=== PATIENT | female | born 1965 | race Caucasian/White ===

== ENCOUNTER 2018-09-09 10:42 | Outpatient (CLI) | END 2018-09-09 10:43 | disposition home or self-care (01) | LOC: RHC-LAB 10:42 → FCC-LAB 10:43 | PROVIDERS: ATTEND Family Medicine | DX: E03.9 Hypothyroidism, unspecified (principal); E78.5 Hyperlipidemia, unspecified | CPT/HCPCS: 36415; 80053; 80061; 84443; 85025 ==

== ENCOUNTER 2018-09-23 12:29 | Outpatient (CLI) | payer BC, OTHER | END 2018-09-23 12:30 | disposition home or self-care (01) | LOC: LAB 12:29 | PROVIDERS: ATTEND Family Medicine | DX: E87.5 Hyperkalemia (principal); E83.52 Hypercalcemia | CPT/HCPCS: 36415; 80053 ==

== ENCOUNTER 2019-01-02 12:47 | Outpatient (CLI) | payer OTHER | END 2019-01-02 12:48 | disposition home or self-care (01) | LOC: RHC-LAB 12:47 → FCC-LAB 12:48 | PROVIDERS: ATTEND Nurse Practitioner Family | DX: R30.0 Dysuria (principal) | CPT/HCPCS: 81001 ==

== ENCOUNTER 2021-07-03 09:56 | Observation (INO) ==
[2021-07-03] MEDS ORDERED: NITROSTAT SL PRN (10:16)
[2021-07-03] MEDS ORDERED: ATROPINE SULFATE PFS IVP PRN (10:16)
[2021-07-03] MEDS ORDERED: TYLENOL PO PRN (10:16)
[2021-07-03] MEDS ORDERED: DECADRON IM ONE (10:19)
[2021-07-03 10:39] VITALS: BMI 28.4
[2021-07-03 10:40] LABS: BASOPHILS % (AUTO) 0.3 % (0.0-3.0); EOSINOPHILS # (AUTO) 0.1 K/ul (0.0-0.7); EOSINOPHILS % (AUTO) 0.7 % (0.0-7.0); HEMATOCRIT 42.5 % (37.0-47.0); HEMOGLOBIN 14.3 g/dl (12.0-16.0); IMMATURE GRANULOCYTE # (AUTO) 0.1 (0.0-1.0); LYMPHOCYTES # (AUTO) 2.8 K/uL (0.60-3.4); LYMPHOCYTES % (AUTO) 24.1 (10.0-50.0); MEAN CORPUSCULAR HEMOGLOBIN 31.7 pg (27.0-31.0); MEAN CORPUSCULAR HGB CONC 33.6 (31.8-35.4); MEAN CORPUSCULAR VOLUME 94.2 fl (81.0-99.0); MONOCYTES # (AUTO) 0.8 K/uL (0.4-2.0); NEUTROPHILS # (AUTO) 7.9 K/ul (2.0-6.9); NEUTROPHILS % (AUTO) 66.9 % (42.2-75.2); PLATELET COUNT 526 10^3/uL (140-440); RDW COEFFICIENT OF VARIATION 12.3 % (11.6-14.8); RED BLOOD COUNT 4.51 10^6/ul (4.20-5.40); WHITE BLOOD COUNT 11.74 K/ul (4.6-10.2)
[2021-07-03 10:51] LABS: ALANINE AMINOTRANSFERASE 53.8 U/L (0-35); ALBUMIN 4.48 g/dL (3.5-5.0); ASPARTATE AMINO TRANSFERASE 34.8 U/L (14-36); BILIRUBIN,TOTAL 0.55 mg/dL (0.2-1.3); BLOOD UREA NITROGEN 13.9 mg/dL (7-17); CALCIUM 9.51 mg/dL (8.4-10.2); CARBON DIOXIDE 26.9 mmol/L (22-30.0); CHLORIDE 106.9 mmol/L (98-107); CREATININE 0.75 mg/dL (0.60-1.30); GLUCOSE 94.4 mg/dL (74-106); POTASSIUM 4.07 mmol/L (3.5-5.1); SODIUM 141.9 mmol/L (134.5-145); TOTAL PROTEIN 7.97 g/dL (6.3-8.2)
[2021-07-03] MEDS: ZINC-220 PO SCH (11:24)
[2021-07-03] MEDS: VITAMIN D PO SCH (11:24)
--- NOTE | 2021-07-03 11:29 | DI ---
EXAM: PA and lateral views of the chest HISTORY: Shortness of breath COMPARISON: None FINDINGS: The cardiomediastinal silhouette is normal. There is no pneumothorax or pleural effusion. There is no consolidation, nodule or mass. There is minimal patchy ground-glass in the right lower lung. The osseous structures tear degenerative disease of the spine. IMPRESSION: Minimal patchy ground-glass in right lower lung may represent developing pneumonia versu s inflammatory changes
[2021-07-03] MEDS: SODIUM CHLORIDE 1,000 ML IV SCH (11:34)
[2021-07-03] MEDS: ROCEPHIN 1 GM/50 ML D5W 1 GM/50 ML BAG IV SCH (11:34)
[2021-07-03 13:13] LABS: BILIRUBIN,URINE Negative (NEGATIVE); CLARITY,URINE Clear (CLEAR); COLOR,URINE Yellow (YELLOW); GLUCOSE, URINE (UA) Negative (NEGATIVE); KETONES,URINE Negative (NEGATIVE); LEUKOCYTE ESTERASE ,URINE Trace (NEGATIVE); NITRITE,URINE Negative (NEGATIVE); PH,URINE 6.5 (5-9); PROTEIN,URINE Negative (NEGATIVE); URINE, BLOOD Negative (NEGATIVE); UROBILINOGEN,URINE 0.2 (0.2)
[2021-07-03 13:18] LABS: SQUAMOUS EPITHELIAL CELL,UR NOT PRESENT (0-5)
[2021-07-03] MEDS ORDERED: IMODIUM PO PRN (14:34)
[2021-07-03] MEDS ORDERED: IMODIUM PO ONE (14:34)
[2021-07-03] MEDS: TORADOL IVP PRN (16:38)
[2021-07-03] MEDS: PROTONIX PO SCH (16:38)
[2021-07-03 17:05] LABS: CREATINE KINASE 53.5 U/L (30-135)
[2021-07-03 17:18] LABS: TROPONIN I < 0.012 ng/ml (0.0000-0.120)
[2021-07-03] MEDS: VISTARIL PO SCH (20:35)
[2021-07-03] MEDS: LIPITOR PO SCH (20:41)
[2021-07-03] MEDS: XALATAN EACHEYE SCH (20:41)
[2021-07-03] MEDS ORDERED: PRILOSEC PO SCH (21:00)
[2021-07-04 01:31] LABS: CREATINE KINASE 49.7 U/L (30-135)
[2021-07-04 01:46] LABS: TROPONIN I < 0.012 ng/ml (0.0000-0.120)
[2021-07-04] MEDS: SODIUM CHLORIDE 1,000 ML IV SCH ×2 (02:25→16:40)
[2021-07-04 05:14] LABS: BASOPHILS % (AUTO) 0.2 % (0.0-3.0); EOSINOPHILS % (AUTO) 0.2 % (0.0-7.0); HEMATOCRIT 38.5 % (37.0-47.0); IMMATURE GRANULOCYTE # (AUTO) 0.1 (0.0-1.0); IMMATURE GRANULOCYTE % (AUTO) 0.7 % (0.0-5.0); LYMPHOCYTES % (AUTO) 16.9 (10.0-50.0); MEAN CORPUSCULAR HEMOGLOBIN 32.1 pg (27.0-31.0); MEAN CORPUSCULAR HGB CONC 33.8 (31.8-35.4); MEAN CORPUSCULAR VOLUME 95.1 fl (81.0-99.0); MONOCYTES # (AUTO) 0.9 K/uL (0.4-2.0); MONOCYTES % (AUTO) 7.9 (0-10); NEUTROPHILS # (AUTO) 8.8 K/ul (2.0-6.9); NEUTROPHILS % (AUTO) 74.1 % (42.2-75.2); PLATELET COUNT 455 10^3/uL (140-440); RDW COEFFICIENT OF VARIATION 12.4 % (11.6-14.8); RED BLOOD COUNT 4.05 10^6/ul (4.20-5.40); WHITE BLOOD COUNT 11.91 K/ul (4.6-10.2)
[2021-07-04 05:28] LABS: ALANINE AMINOTRANSFERASE 49.3 U/L (0-35); ALBUMIN 3.91 g/dL (3.5-5.0); ALKALINE PHOSPHATASE 110.1 U/L (38-126); ASPARTATE AMINO TRANSFERASE 41.5 U/L (14-36); BILIRUBIN,TOTAL 0.35 mg/dL (0.2-1.3); BLOOD UREA NITROGEN 9.4 mg/dL (7-17); CALCIUM 9.1 mg/dL (8.4-10.2); CARBON DIOXIDE 25.1 mmol/L (22-30.0); CHLORIDE 109.7 mmol/L (98-107); CREATININE 0.67 mg/dL (0.60-1.30); GLUCOSE 110.8 mg/dL (74-106); POTASSIUM 3.91 mmol/L (3.5-5.1); SODIUM 141.5 mmol/L (134.5-145); TOTAL PROTEIN 7.08 g/dL (6.3-8.2)
[2021-07-04] MEDS: SYNTHROID PO SCH (05:40)
[2021-07-04] MEDS: PROTONIX PO SCH ×2 (05:40→16:40)
[2021-07-04] MEDS ORDERED: LEVOTHYROXINE 112 MCG PO SCH (06:30)
[2021-07-04] MEDS: TORADOL IVP PRN (08:08)
[2021-07-04] MEDS: ROCEPHIN 1 GM/50 ML D5W 1 GM/50 ML BAG IV SCH (09:19)
[2021-07-04] MEDS: VITAMIN D PO SCH (09:19)
[2021-07-04 09:20] LABS: CREATINE KINASE 52.4 U/L (30-135)
[2021-07-04] MEDS: VISTARIL PO SCH ×2 (09:20→20:34)
[2021-07-04] MEDS: ZINC-220 PO SCH (09:20)
[2021-07-04 09:34] LABS: TROPONIN I < 0.012 ng/ml (0.0000-0.120)
--- NOTE | 2021-07-04 09:47 | PN ---
DATE OF SERVICE: 07/03/2021 SUBJECTIVE: The patient was seen and examined in the office. The patient had COVID duration more than two weeks. The patient's condition seems to have improved initially. She was antibiotics and steroids but today she has been practically unable to walk on her own. Appetite has been poor, weak, tired and seems to be dehydrated. The patient is going to be hospitalized. Vitals and saturations are normal. She will be on routine telemetry orders and will have a chest x-ray, ABG, D-dimer, CRP and Echo to see the RV contractility and to rule out any cardiomyopathy. The patient was seen and examined. History and Physical was done with Nurse Practitioner and plan was formulated. TIME SPENT: More than 30 minutes. Plan and coordination of the patient's care discussed in the presence of nurse. JUAQUIN
--- NOTE | 2021-07-04 10:55 | PN ---
DATE OF SERVICE: 07/04/2021 SUBJECTIVE: The patient was hospitalized yesterday with dehydration and fatigue. The patient is COVID a couple of weeks post. Complains of having sweats at night off and on. No real fever. No nausea and no vomiting. Appetite is poor. The patient's condition is improved. Hydration status seems to have improved. REVIEW OF SYSTEMS: CONSTITUTIONAL: No night sweats. No fatigue, malaise, lethargy. No fever or chills. HEENT: Eyes: No visual changes. No eye pain. No eye discharge. ENT: No runny nose. No epistaxis. No sinus pain. No sore throat. No odynophagia. No congestion. RESPIRATORY: No cough, no congestion. No hemoptysis. No shortness of breath. CARDIOVASCULAR: No angina symptoms. No CHF symptoms. No atypical chest pain for CAD. No palpitations. No PND. No orthopnea. GASTROINTESTINAL: No abdominal pain. No nausea or vomiting. No diarrhea or constipation. No hematemesis. No hematochezia. GENITOURINARY: No urgency. No frequency. No dysuria. No hematuria. No obstructive symptoms. No discharge. No pain. No significant abnormal bleeding. MUSCULOSKELETAL: No musculoskeletal pain; no joint swelling. NEUROLOGICAL: No headache. No neck pain. No syncope. No seizures. No dizziness. PSYCHIATRIC: Not anxious. No depression. No suicidal thoughts. No homicidal thoughts. SKIN: No rash. No lesions. No wounds. ENDOCRINE: No unexplained weight loss. No weight gain. HEMATOLOGIC/LYMPHATIC: No anemia. No purpura. No petechiae. No prolonged or excessive bleeding. No palpable lymph nodes. PHYSICAL EXAMINATION: HEENT: Head normocephalic, atraumatic. Eyes: Extraocular muscles are intact. Pupils are equal, round and reactive to light and accommodation. Ears: No lesions. Nose appeared normal. Throat: No exudate or erythema. NECK: Supple. No JVD, no carotid bruit. No lymphadenopathy or thyromegaly. LUNGS: Decreased breath sounds but clear to auscultation. Percussion note normal. Chest symmetrical. HEART: S1, S2, no S3. No murmurs. No cyanosis or clubbing. No ascites. Pulses: Dorsalis pedis and posterior tibial pulses +1 to +2 bilaterally. ABDOMEN: Soft. Nontender. Bowel sounds active. No CVA tenderness. No mass felt. EXTREMITIES: No edema. Full range of motion of all extremities, equal. NEUROLOGIC: No focal deficit. Cranial nerves II through XII are grossly intact. No headache. No double vision. SKIN: Not dry. Intact. Turgor - normal. LYMPHATIC: No palpable lymph nodes/no lymphedema. MUSCULOSKELETAL: Normal joints with no swelling. Muscle tone is normal. LABS: EKG sinus rhythm. No acute changes. No evidence of CHF or coronary insufficiency. D-Dimer and CRP is all acceptable. Chest x-ray showed possible infiltrate. ASSESSMENT: 1. COVID-status post COVID by couple of weeks with fatigue, shortness of breath. PLAN: 1. Continue to encourage the patient to continue steroids and IV fluids 2. Echo to evaluate LV function. CONDITION: Stable. TIME SPENT: More than 30 minutes. Plan and coordination of the patient's care discussed in the presence of nurse. JUAQUIN
[2021-07-04] MEDS ORDERED: XANAX PO PRN (10:57)
[2021-07-04] MEDS: LIPITOR PO SCH (20:34)
[2021-07-04] MEDS: XALATAN EACHEYE SCH (20:35)
[2021-07-05 05:07] LABS: BASOPHILS # (AUTO) 0.1 K/uL (0-0.2); BASOPHILS % (AUTO) 0.6 % (0.0-3.0); EOSINOPHILS # (AUTO) 0.1 K/ul (0.0-0.7); EOSINOPHILS % (AUTO) 1.2 % (0.0-7.0); HEMOGLOBIN 11.7 g/dl (12.0-16.0); IMMATURE GRANULOCYTE # (AUTO) 0.1 (0.0-1.0); IMMATURE GRANULOCYTE % (AUTO) 0.5 % (0.0-5.0); LYMPHOCYTES # (AUTO) 4.6 K/uL (0.60-3.4); LYMPHOCYTES % (AUTO) 49.4 (10.0-50.0); MEAN CORPUSCULAR HEMOGLOBIN 31.5 pg (27.0-31.0); MEAN CORPUSCULAR HGB CONC 32.5 (31.8-35.4); MONOCYTES # (AUTO) 0.7 K/uL (0.4-2.0); NEUTROPHILS # (AUTO) 3.9 K/ul (2.0-6.9); NEUTROPHILS % (AUTO) 41.3 % (42.2-75.2); PLATELET COUNT 404 10^3/uL (140-440); RDW COEFFICIENT OF VARIATION 12.9 % (11.6-14.8); RED BLOOD COUNT 3.71 10^6/ul (4.20-5.40); WHITE BLOOD COUNT 9.37 K/ul (4.6-10.2)
[2021-07-05 05:19] LABS: ALANINE AMINOTRANSFERASE 39.6 U/L (0-35); ALBUMIN 3.26 g/dL (3.5-5.0); ALKALINE PHOSPHATASE 83.3 U/L (38-126); ASPARTATE AMINO TRANSFERASE 24.7 U/L (14-36); BILIRUBIN,TOTAL 0.34 mg/dL (0.2-1.3); BLOOD UREA NITROGEN 13.6 mg/dL (7-17); CALCIUM 8.65 mg/dL (8.4-10.2); CARBON DIOXIDE 27.2 mmol/L (22-30.0); CHLORIDE 111.5 mmol/L (98-107); CREATININE 0.86 mg/dL (0.60-1.30); GLUCOSE 88.1 mg/dL (74-106); POTASSIUM 4.38 mmol/L (3.5-5.1); SODIUM 142.2 mmol/L (134.5-145); TOTAL PROTEIN 6.21 g/dL (6.3-8.2)
[2021-07-05] MEDS: SODIUM CHLORIDE 1,000 ML IV SCH (05:38)
[2021-07-05] MEDS: SYNTHROID PO SCH (05:38)
[2021-07-05] MEDS: PROTONIX PO SCH (05:38)
[2021-07-05] MEDS: ROCEPHIN 1 GM/50 ML D5W 1 GM/50 ML BAG IV SCH (08:31)
[2021-07-05] MEDS: VITAMIN D PO SCH (08:32)
[2021-07-05] MEDS: VISTARIL PO SCH (08:32)
[2021-07-05] MEDS: ZINC-220 PO SCH (08:32)
[2021-07-05 10:11] VITALS: BP 99/65; TEMP 98.3
--- NOTE | 2021-07-07 10:57 | HP ---
DATE OF SERVICE: 07/03/21 REASON FOR HOSPITALIZATION/HISTORY OF PRESENT ILLNESS: Positive COVID 06/12/21. Still no strength. No energy. Diarrhea this morning. Ears feel better. No cough. No fever. No appetite. Dizzy, weak and feels like may faint. No signs or symptoms of CHF or CAD. Sunshine two weeks ago had no pap smear, 3 yearly. Normal pap smear for 5 years discussed. 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 HEENT: No sinus drainage, no sore throat. RESPIRATORY: No cough, no congestion. CARDIOVASCULAR: No atypical chest pain for coronary artery disease. No angina, CHF symptoms, palpitations. Shortness of breath with exertion. GASTROINTESTINAL: No melena or abdominal pain. No GERD. Diarrhea and decreased appetite. GENITOURINARY: No hematuria, no prostatism, no polyuria. FIRE SAFETY INSPECTOR: No blackout, no dizziness, no headache, no double vision. MUSCULOSKELETAL: No osteoarthritis pain, no joint swelling. ENDOCRINE: Weight loss of 3 pounds, no weight gain. SKIN: Not dry, no rash. PSYCHIATRIC: Not anxious, no depression, no suicidal thoughts, no homicidal thoughts. SOCIAL HISTORY: Marital Status: . Alcohol Usage: No. Tobacco Usage: No. FAMILY HISTORY: Father -suicide Mother Brother 2 alive Sister 3 alive MEDICATIONS: Atorvastatin 40mg at HS Levothyroxine 0.112mg at AM Protonix 40mg AM Latanoprost eye QHS 125mg HS Omeprazole 20mg BID Refused COVID vaccine. ALLERGIES: Morphine Meperidine Cymbalta Demerol Duloxetine Codeine Amoxicillin Diclofenac Prednisone PHYSICAL EXAMINATION: V/S: Pulse 81, blood pressure 122/61, temperature 97.9, oxygen saturation 97%. BMI 285, height 5'3, Weight 161.0. GENERAL APPEARANCE: Oriented times three. HEENT: Pale dry mucous membranes. NECK: No JVP, no bruits. RESPIRATORY: Decreased breath sounds. CARDIOVASCULAR: S1, S2, no S3, no murmur. No cyanosis, clubbing. No ascites. GI/ABDOMEN: No tenderness. Bowel sounds are active. EXTREMITIES: edema, pulses +1, equal. FIRE SAFETY INSPECTOR: Deep tendon reflexes, sensory, motor and gait all normal. RECTAL: Repeat 10 years 2016 [place], [place]/PELVIC: Dr. Lang 07/12, 01/10. Mammogram 10/08/20 [facility]. ASSESSMENT: 1. Dehydration 2. COVID 19 06/12/21 3. GERD 4. Hypothyroidism 5. Dyslipidemia 6. Positive HPV- Pap 2016- then one normal pap after 7. Status post cholecystectomy 8. Osteoarthritis hands 9. BMI 30 10.Cath 2013- Broken heart Syndrome PLAN: 1. Admit Observation 2. Routine telemetry, No cardiac markers 3. Normal saline IV at 75cc an hour 4. 1cc Decadron IM now 5. Rocephin 1 gram IV daily 6. Vitamin D 5000mg daily PO 7. Zinc 220mg daily PO 8. Chest x-ray 9. Urinalysis 10.CBC and CMP now and daily 11.Regular diet TIME SPENT: More than 70 minutes. MTDD
--- NOTE | 2021-07-07 11:46 | ECHO2D ---
Date of Exam: 07/05/2021 Ordering Physician: DR. ALANIS HARRY Room #: 104 Reason for Echo: SHORT OF AIR M-Mode Normal Adult Results LV Dimensions Normal Adult Results AoV Opening excursions >1.6 >1.6 LVEDD-base- 3.5-5.8 4.6 Ao root dimensions 2.0-3.7 2.7 LVESD-base- 3.1-4.6 L. Atrium dimensions 1.9-3.8 3.5 Post. Wall thickness 0.8-1.1 1.1 IV septum (thickness) 0.7-1.2 1.1 Post. Wall excursion 0.72-1.3 NORMAL Septal motion NORMAL Systolic motion R. Ventricular cavity 1.5-2.0 NORMAL LVEF 60% 59% Paradoxical septal wall motion NORMAL 2-D : 2-D M Mode Echocardiogram was performed using apical four chamber and left parasternal long and short axis views. Mitral, tricuspid and aortic valves appear to be normal. Contractility of the left ventricle seems to be normal, so is the cavity size. Left atrial cavity size and aortic root appear to be normal. There is no pericardial effusion. There is no thrombus noted in the left ventricle or left atrial cavity. M-MODE: MV: NORMAL AV: NORMAL TV: NORMAL PV: CHAMBER SIZE: NORMAL WALL MOTION: NORMAL PERICARDIUM: NORMAL INTERPRETATION: 1. NORMAL 2 "D" "M" MODE ECHO MTDD
--- NOTE | 2021-07-07 13:16 | PN ---
DATE OF SERVICE: 07/05/2021 SUBJECTIVE: The patient was admitted with dehydration and post COVID 19 status, mild bronchitis/pneumonitis.The patient's over all condition has improved. She is up and about feeling better. Appetite has improved. REVIEW OF SYSTEMS: CONSTITUTIONAL: No night sweats. No fatigue, malaise, lethargy. No fever or chills. HEENT: Eyes: No visual changes. No eye pain. No eye discharge. ENT: No runny nose. No epistaxis. No sinus pain. No sore throat. No odynophagia. No congestion. RESPIRATORY: No cough, no congestion. No hemoptysis. No shortness of breath. CARDIOVASCULAR: No angina symptoms. No CHF symptoms. No atypical chest pain for CAD. No palpitations. No PND. No orthopnea. GASTROINTESTINAL: No abdominal pain. No nausea or vomiting. No diarrhea or constipation. No hematemesis. No hematochezia. GENITOURINARY: No urgency. No frequency. No dysuria. No hematuria. No obstructive symptoms. No discharge. No pain. No significant abnormal bleeding. MUSCULOSKELETAL: No musculoskeletal pain; no joint swelling. NEUROLOGICAL: No headache. No neck pain. No syncope. No seizures. No dizziness. PSYCHIATRIC: Not anxious. No depression. No suicidal thoughts. No homicidal thoughts. SKIN: No rash. No lesions. No wounds. ENDOCRINE: No unexplained weight loss. No weight gain. HEMATOLOGIC/LYMPHATIC: No anemia. No purpura. No petechiae. No prolonged or excessive bleeding. No palpable lymph nodes. PHYSICAL EXAMINATION: VITAL SIGNS: Temperature 97.7, pulse 53, respiratory rate 16, blood pressure 130/70 and pulse ox 99% on room air. HEENT: Head normocephalic, atraumatic. Eyes: Extraocular muscles are intact. Pupils are equal, round and reactive to light and accommodation. Ears: No lesions. Nose appeared normal. Throat: No exudate or erythema. NECK: Supple. No JVD, no carotid bruit. No lymphadenopathy or thyromegaly. LUNGS: Decreased breath sounds but clear to auscultation. Percussion note normal. Chest symmetrical. HEART: S1, S2, no S3. No murmurs. No cyanosis or clubbing. No ascites. Pulses: Dorsalis pedis and posterior tibial pulses +1 to +2 bilaterally. ABDOMEN: Soft. Nontender. Bowel sounds active. No CVA tenderness. No mass felt. EXTREMITIES: No edema. Full range of motion of all extremities, equal. NEUROLOGIC: No focal deficit. Cranial nerves II through XII are grossly intact. No headache. No double vision. SKIN: Not dry. Intact. Turgor - normal. LYMPHATIC: No palpable lymph nodes/no lymphedema. MUSCULOSKELETAL: Normal joints with no swelling. Muscle tone is normal. LABS: Hgb 11.7, hct 36, WBC 9,300 normal differential, creatinine 0.8, BUN 13, potassium 4.3. ASSESSMENT: 1. COVID 19 pneumonia status post two weeks. Still has shortness of breath but has improved over all status has improved. Oxygen status has improved. PLAN: 1. The patient had echocardiogram done which showed normal LV contractility. No effusion. Practically normal 2D-M Mode echo. 2. She is going to be discharged home on Omeprazole twice a day, Omnicef BID for 5 days and Xanax 0.25mg one at night as needed. She could even take half of one. The patient says that she took one Xanax a lot. 3. Continue the rest of the medication 4. I will see her on next Wednesday at 9:30am. 5. She is advised to rest until then. 6. The patient has to have thyroid profile done before discharge. TIME SPENT: More than 30 minutes. Plan and coordination of the patient's care discussed in the presence of nurse. JUAQUIN
--- NOTE | 2021-07-07 13:34 | DS ---
DATE OF SERVICE: 07/05/2021 FINAL DIAGNOSIS: 1. Post COVID 19 status with pneumonitis and bronchitis 2. Dehydration 3. Generalized fatigue and shortness of breath combination of increase nutritional status, dehydration and post COVID status. 4. Dyslipidemia 5. Hypothyroidism 6. Reflux disease 7. Anemia DISCHARGE INSTRUCTIONS: Discharge home. Followup in the office next week. MEDICATIONS AT DISCHARGE: Omeprazole 20mg PO twice a day for 15 days after that one at night as before Omnicef 300mg twice a day for 5 days Xanax 0.25mg half to one tablet PO at HS PRN Continue eye drops as before. Lipitor 80mg PO at bedtime Levothyroxine 112mcg PO daily LABS: D-dimer within normal limits. C-reactive protein 2 which is normal, Troponin negative. GFR was 68cc per minute on discharge, TSH pending. Hgb 11.7, hct 36, WBC 9,300 normal differential,creatinine 0.8, BUN 13, potassium 4.3, glucose 88. HOSPITAL COURSE: 55 year old white female was seen in the office. She was status post COVID nearly two weeks. Condition initially had improved after bronchitis from COVID but then it deteriorated. Appetite was poor. She had problem even ambulating. The patient was treated with antibiotics and supportive measure. Did not help in fact from her history it looked that it had worsened. She was advised to be hospitalized under observation where she was given IV fluids, IV Rocephin was started. Chest x-ray showed possibility of pneumonitis. She had reflux type of symptoms which were treated with Protonix BID. Hydroxyzine was given. Anxiety Xanax was tried and helped her a lot for rest at night. At the time of discharge the patient was up and about feeling a lot better. Hydration status had improved. Breathing was much better. Oxygen saturation was 89% on room air. She may under go PFT as an outpatient later on. Echocardiogram was practically normal. Condition at the time of discharge is stable. She was advised not to go back to work until she is released. She is to be seen on Next Wednesday, that is 6- 7 days after discharge in the morning at 9:30. CONDITION: Stable. TIME SPENT: More than 60 minutes. [facility]
--- NOTE | 2021-07-07 13:34 | PN ---
07/03/2021: Level 5 07/04/2021: Intermediate 07/05/2021: D as in discharge MTDD
== END 2021-07-05 13:25 | disposition home or self-care (01) ==
LOC: MEDSURG A 09:56 → INTOOBSV 09:56
PROVIDERS: ADMIT Internal Medicine; ATTEND Internal Medicine
DX: R06.02 Shortness of breath; J12.82 Pneumonia due to coronavirus disease 2019; R53.83 Other fatigue; K21.9 Gastro-esophageal reflux disease without esophagitis; J20.8 Acute bronchitis due to other specified organisms; R53.1 Weakness; E03.9 Hypothyroidism, unspecified; D64.9 Anemia, unspecified; E86.0 Dehydration; E78.5 Hyperlipidemia, unspecified; U07.1 COVID-19